=== PATIENT | male | born 1950 | race Caucasian/White ===

== ENCOUNTER 2018-05-18 21:32 | Emergency (ER) | payer SELFPAY ==
--- NOTE | 2018-05-18 22:14 | ED Physician Documentation ---
Chest Pain - HISTORIAN Historian: patient, paramedics, other (spouse carina payne) - HPI Chief Complaint: Syncope Onset: hours Timing: sudden onset (ptg at [facility] [place] visiting w/ another empoloyee in break room other employee departed but heard fall ret to break room pt on floor unconscious apparently sig emesis 911 sxcalled approx 2113 on scene 2116 pt some signs of life agonal resp respondedd to "audto pulse" occ rhythm w/pulse emesis aspirated by ems std bag mask resp resp heard on lt side only---[facility] 21), resolved on arrival to ED (cardia on monitor w/ carotid weak pulse iv std lw/ ep;li given x 2-furthur aspiration dentures removed intubated good resp on lt fair on rt. but emewsis ret w expiration continued suction resp rt opupil dilated on rt min on lt--cpr w./ att resp continued w/ freq suction-- said ate normal supper approx 1700hrs drank coffee in break room. detailed hx taken fr on her arrival.), other (we cont CPR lost pulse xc wl compressions - pt developed agonal rhythm w/no pulse and then both eyes widely dilated and light unresponsive. see rhythm strips agonal thm to pea. ep;i x 2 code called. cephalometric analyst arrivaed we discussed autopsy- declined. other hx from her was he hadk developed sharp low thoracic backk pain earlier today and apparently grewd progressively worse but he went to work anyway.--rupt aortic aneursym a consideration) Last known Well Date: 05/18/18 Last Known Well Time: 21:10 Last known Well Code/Unknown Code: Known Context: activity Quality: other (no chest pain in hx or reported to [facility] employee) Chest Pain Signs/Symptoms: vomiting, other (siginificant aspiration of emesis) Further Comments: yes ( declined autopsy ok for organ donor) - ROS CONST: other (as above) GI/: other (abdomen not firm or distended) - PAST HX VT risk factors: hypertension, other (djd---poss rupt aortic aneurysm) Lung disease: COPD (has prev been heavy cigarette smoker-qwuit approx 4 yrs ago) Surgeries/Procedures: none - SOCIAL HX Smoking History: quit greater than 1 year Alcohol Use: none - FAMILY HX Family HX: other (F-D-CANCER DEMENTIA M-D-? 1-b-d cancer) Chest Pain Physical Exam - EXAM General Appearance: other (unresponsive one eye dilateed on arrival--marked emesis and aspiration even after copious suctioning) EENT: No: eye inspection normal Respiratory: No: nml breath sounds (ess no breath sounds on rt side-perhaps minimal after intubation ET) CVS: other (agonal near end then pea). No: reg. rate & rhythm Abdomen: soft, no distension (ninimal) Skin: mottled, pallor Extremities: no evidence of injury Neuro: other (unresponsive) Discharge Clincal Impression: sudden cardiac , possible ruptured aortic aneuryssm, hx ht6n, hx HTN Referrals: Primary Doctor,No [Primary Care Provider] - 2 Days Comments: PRONOUNCED 2144HRS--- ARRIVED DISC COND AND REC HX FROM HER Decision to Admit: NO Decision Time: 23:17
== END 2018-05-19 05:10 | disposition expired ==
LOC: ED 21:32
DX: I46.9 Cardiac arrest, cause unspecified (principal)
CPT/HCPCS: 99285; S1016